=== PATIENT | female | born 1980 | race Caucasian/White ===

== ENCOUNTER → 2020-02-23 16:00 | Outpatient (BNVA) | payer OTHER, SELFPAY | PROVIDERS: Family Provider Nurse Practitioner; Visit Provider Nurse Practitioner | DX: Z11.3 Encounter for screening for infections with a predominantly sexual mode of transmission (principal); Z12.4 Encounter for screening for malignant neoplasm of cervix; R50.9 Fever, unspecified; Z11.59 Encounter for screening for other viral diseases | CPT/HCPCS: 87491; 87591; 87635; 87661; 88175 ==

== ENCOUNTER → 2020-06-11 14:50 | Outpatient (BNVA) | payer MEDICAID, SELFPAY | PROVIDERS: Family Provider Nurse Practitioner; Visit Provider Nurse Practitioner | DX: L98.9 Disorder of the skin and subcutaneous tissue, unspecified (principal) | CPT/HCPCS: 88305 ==

== ENCOUNTER → 2020-09-29 11:55 | Outpatient (BNVA) | payer BC, MEDICAID, SELFPAY | PROVIDERS: Family Provider Nurse Practitioner; PCP Obstetrics & Gynecology; Visit Provider Obstetrics & Gynecology | DX: N89.8 Other specified noninflammatory disorders of vagina (principal); B37.3 Candidiasis of vulva and vagina | CPT/HCPCS: 87070; 87106; 87205; 87210 ==

== ENCOUNTER → 2020-10-08 13:00 | Outpatient (BNVA) | payer BC, MEDICAID, SELFPAY | PROVIDERS: Family Provider Nurse Practitioner; PCP Obstetrics & Gynecology; Visit Provider Obstetrics & Gynecology | DX: R10.2 Pelvic and perineal pain (principal) | CPT/HCPCS: 76830 ==

== ENCOUNTER → 2020-11-29 16:56 | Outpatient (BNVA) | payer BC, MEDICAID, SELFPAY | PROVIDERS: Family Provider Nurse Practitioner; PCP Nurse Practitioner; Visit Provider Nurse Practitioner | DX: R53.83 Other fatigue (principal); E55.9 Vitamin D deficiency, unspecified | CPT/HCPCS: 80053; 82306; 82607; 84443; 85025 ==

== ENCOUNTER → 2021-03-29 15:54 | Outpatient (BNVA) | payer BC, MEDICAID, SELFPAY | PROVIDERS: Family Provider Nurse Practitioner; PCP Nurse Practitioner; Visit Provider Nurse Practitioner | DX: E55.9 Vitamin D deficiency, unspecified (principal) | CPT/HCPCS: 82306 ==

== ENCOUNTER → 2021-08-30 16:09 | Outpatient (BNVA) | payer BC, MEDICAID, SELFPAY | PROVIDERS: Family Provider Nurse Practitioner; PCP Nurse Practitioner; Visit Provider Nurse Practitioner Family | DX: R50.9 Fever, unspecified (principal) | CPT/HCPCS: 87635 ==

== ENCOUNTER 2021-10-04 13:41 | Emergency (ER) | payer BC, MEDICAID, SELFPAY ==
[2021-10-04 13:52] VITALS: BP 113/76; PULSE 90; RESP 18; TEMP 36.8; O2SAT 98; BMI 23.8
[2021-10-04 14:01] VITALS: BP 113/76; PULSE 90; RESP 16; O2SAT 98
--- NOTE | 2021-10-04 14:01 | XRR_ITS ---
PROCEDURE INFORMATION: Exam: XR Left Knee Exam date and time: 10/04/2021 2:01 PM Age: 41 years old Clinical indication: Fall with blunt left knee trauma. Hit knee on ground. TECHNIQUE: Imaging protocol: XR Left knee. Views: 3 views. COMPARISON: No relevant prior studies available. FINDINGS: Bones/joints: No significant knee joint effusion. No fracture, dislocation or subluxation. No suspicious bone lesion. No significant degenerative changes. Soft tissues: The extensor mechanism is overall intact. No significant soft tissue swelling is appreciated. XR/XR knee LT 3V* [id number] IMPRESSION: No acute fracture is identified.
--- NOTE | 2021-10-04 14:03 | W.ED.EXTPRO ---
HPI - Extremity Problem General: Chief complaint: Extremity Problem,Nontraumatic Stated complaint: L Knee injury Time Seen by Provider: 10/04/21 13:46 History of Present Illness: Patient is a 41-year-old female comes to the ED with left knee injury. Patient says injury occurred just prior to arrival. She was climbing over a baby gate and tripped and fell forward hitting her left knee onto floor. She rates her pain a 6 out of 10. Associated symptoms: Deny chest pain, fever(s) or rash Review of Systems Const: Denies: fever(s), chills or fatigue Eyes: Denies: change in vision or eye discomfort ENMT: Denies: throat pain, odynophagia, nasal discharge or nasal congestion Card: Denies: chest pain, palpitations, edema, swelling of feet/ankles, dyspnea on exertion or orthopnea Resp: Denies: dyspnea, productive cough or non-productive cough GI: Denies: abdominal pain, nausea, vomiting, diarrhea, constipation or hematochezia : Denies: flank pain, dysuria or hematuria Musc: Reports: extremity pain (left knee pain); Denies: neck pain, back pain or extremity swelling Skin/Breast: Denies: rash or new lesions Neuro: Denies: headache(s), numbness in extremities or weakness in extremities PFSH ED PFSH: Medical History Fibromyalgia muscle pain History of menorrhagia Treated by endometrial ablation in 06/2019 Medical marijuana use Surgical History History of bilateral tubal ligation (~2005) History of lumpectomy (~2007) Status post endometrial ablation (07/15/19) NovaSure endometrial ablation. Diagnosis: Menorrhagia, Dysmenorrhea, Endometrial polyp. Performed by Dr. Alfonso Peace at [facility] and [place], [place]. Family History Unknown Hypertension family members in general Stroke family members in general Diabetes family members in general Mother Thyroid disease Social History Smoking and tobacco status: current every day smoker cigarettes [ Other cigarette details: quit in 2014 then started back in ] Second hand smoke exposure: No Smoking risk assessment/counseling performed?: Yes Alcohol intake: current Alcohol intake frequency: few times a month Desire information about alcohol rehabilitation?: No Counseling given: No Desire information about substance/drug rehabilitation?: No Counseling given: No Adopted: No Caregiver/support person: No Lives independently: Yes Marital status: service: No Current gender identity: Female Female Reproductive History: Date of last menstrual period: 07/15/19 Physical Exam Const: COMMON NORMALS: no acute distress, patient oriented x3, healthy appearing and alert GENERAL APPEARANCE: cooperative and comfortable HENMT: COMMON NORMALS: normocephalic HEAD & SCALP: normocephalic MOUTH: Normal oral and palatal mucosa present THROAT: posterior oropharynx normal and uvula midline Neck/C-Spine: COMMON NORMALS: supple GENERAL: Yes normal visual inspection Resp: COMMON NORMALS: normal respiratory effort, No retractions, No use of accessory muscles and clear to auscultation bilaterally AUSCULTATION: clear to auscultation bilaterally Cardio: COMMON NORMALS: regular rate, regular rhythm, S1 normal heart sound present, S2 normal heart sound present, No gallops present (Cardio), No clicks present (Cardio), No murmurs present (Cardio) and Peripheral pulses 2+ throughout RATE: regular rate RHYTHM: regular rhythm HEART SOUNDS: S1 normal heart sound present and S2 normal heart sound present PERIPHERAL PULSES: Peripheral pulses 2+ throughout GI: COMMON NORMALS: Normal to inspection, nondistended, normoactive bowel sounds present, Soft to palpation, non-tender and no masses PALPATION: Yes Soft to palpation : COMMON NORMALS: Yes no CVA tenderness BLADDER/KIDNEY EXAM: Yes no CVA tenderness Back/Pelvis: COMMON NORMALS: no CVA tenderness Extremity: COMMON NORMALS: normal to inspection, full ROM and no pedal edema Neuro: COMMON NORMALS: patient oriented x3 and moves all extremities SENSORIUM/ORIENTATION: Yes alert Skin: GENERAL SKIN EXAM: dry skin Course Vital Signs: Vital signs: Vital Signs Temperature 98.2 F 10/04/21 13:52 Pulse Rate 90 10/04/21 14:01 Respiratory Rate 16 10/04/21 14:01 Blood Pressure 113/76 10/04/21 14:01 Pulse Oximetry 98 10/04/21 14:01 MDM - Extremity (Nontraumatic) Medical Decision Making Patient is a 41-year-old female comes to the ED with left knee pain. Patient says she tripped over a baby gate and left knee fell and hit the ground. Denies any other injury. Vital stable. Exam is benign. X-ray of left knee shows no acute fractures or findings. Patient diagnosed with left knee contusion and discharged home with crutches. Follow-up with PCP in 7 to 10 days reevaluation. Return ED precautions given. Patient understood and agree with plan. Lab Data Radiology Impressions Knee X-Ray 10/04/21 14:01 IMPRESSION: No acute fracture is identified. Discharge Plan Discharge Patient Disposition: Home Clinical Impression: Contusion of knee, left Qualifiers: Encounter type: initial encounter Qualified Code(s): S80.02XA - Contusion of left knee, initial encounter Condition: Stable Prescriptions: No Action azithromycin [Zithromax Z-Zeus] 250 mg tablet See Rx Instructions PO .COMPLEX Qty: 6 0RF Rx Instructions: take 500 mg today (day 1), then 250 mg for 4 days (days 2-5) PO mecobalamin (vitamin B12) 5,000 mcg tablet,disintegrating 5,000 mcg PO DAILY Qty: 30 2RF ergocalciferol (vitamin D2) 1,250 mcg (50,000 unit) capsule 1,250 mcg PO .weekly Qty: 4 2RF Discharge Orders: Discharge ED (Routine); Ordered 10/04/21 Ordered By: Vinny Borges Referrals: Lauren Cee, [employer] NETWORK ENGINEER-C [Primary Care Provider] - Discharge Diet: Regular Discharge Activity: Limit activity as instructed and Use walker/crutches as instructed Patient Instructions: Knee Pain (ED) Activity Restrictions/Additional Instructions: Follow-up with medical provider as directed in 7 to 10 days for reevaluation. Take [id number] Tylenol or Motrin for pain. Rest, ice and elevate left knee to help with symptoms. Use crutches for the next 2 to 3 days and limit weightbearing to allow for healing. After 2 to 3 days advance weightbearing as tolerated. Return to the ER or your medical provider if condition worsens. Please read and understand discharge instructions. Thank you for choosing [facility] for your healthcare needs today. Please realize this is an emergency room and that we are providing you with a medical screening exam and this may not be complete and all inclusive of all the testing and or work up that you may need to determine your ailment or severity of your illness. It is very important that you follow up as instructed or that you return to the Emergency Department should you have concerns or if your condition changes or worsens in any way. Coding Level of Care Code ED Cookie Mixer Helper for Wade Chu
[2021-10-04] MEDS: HYDROcodone-acetaminophen 5-325 mg Tablet 1 TAB PO (14:42)
== END 2021-10-04 14:55 | disposition home or self-care (01) ==
PROVIDERS: Emergency Provider Physician Assistant; PCP Nurse Practitioner
DX: S80.02XA Contusion of left knee, initial encounter (principal); F17.210 Nicotine dependence, cigarettes, uncomplicated; W01.0XXA Fall on same level from slipping, tripping and stumbling without subsequent striking against object, initial encounter
CPT/HCPCS: 73562; 99283; E0114

== ENCOUNTER → 2023-02-06 17:19 | Outpatient (BNVA) | payer BC, MEDICAID, SELFPAY | PROVIDERS: PCP Nurse Practitioner; Visit Provider Nurse Practitioner | DX: E55.9 Vitamin D deficiency, unspecified (principal); M79.7 Fibromyalgia; Z13.6 Encounter for screening for cardiovascular disorders | CPT/HCPCS: 80053; 80061; 82306; 82607; 84443; 85025; 88175 ==

== ENCOUNTER 2023-02-23 12:40 | Outpatient (CLI) | payer BC, MEDICAID, SELFPAY ==
--- NOTE | 2023-02-23 13:23 | MM_ITS ---
WS: [id number] BILATERAL 3D TOMOSYNTHESIS DIGITAL SCREENING MAMMOGRAPHY WITH CAD CLINICAL INFORMATION: SCREENING HISTORY: Screening mammogram. History of LEFT lumpectomy COMPARISON: None. TECHNIQUE: Bilateral CC and MLO views. FINDINGS: The breasts are composed of heterogeneous fibroglandular density tissue, which can limit the detectio n of small underlying mass lesions. No suspicious mass, asymmetry, calcifications, or architectural d istortion. No evidence of malignancy. A few incidental punctate calcifications. Bilateral clustered c alcifications MM/[id number] IMPRESSION: BI-RADS: 2-Benign FOLLOW UP: 1 Year Follow-up Recommend return to annual screening mammography.
== END 2023-02-23 12:41 | disposition home or self-care (01) ==
LOC: RAD 13:47
PROVIDERS: PCP Nurse Practitioner; Visit Provider Nurse Practitioner
DX: Z12.31 Encounter for screening mammogram for malignant neoplasm of breast (principal)
CPT/HCPCS: 77063; 77067

== ENCOUNTER → 2023-04-16 10:45 | Outpatient (BNVA) | payer BC, MEDICAID, SELFPAY | PROVIDERS: PCP Nurse Practitioner; Visit Provider Nurse Practitioner Family | DX: R05.9 Cough, unspecified (principal); Z20.822 Contact with and (suspected) exposure to COVID-19 | CPT/HCPCS: 87426 ==

== ENCOUNTER 2023-07-18 12:30 | Emergency (ER) | payer BC, MEDICAID, SELFPAY ==
[2023-07-18 12:35] VITALS: BP 117/84; PULSE 86; RESP 18; TEMP 36.5; O2SAT 100; BMI 20.5
--- NOTE | 2023-07-18 12:51 | XRR_ITS ---
PROCEDURE INFORMATION: Exam: XR Chest Exam date and time: 07/18/2023 12:55 PM Age: 42 years old Clinical indication: Pain; Angina pectoris; Additional info: Cp TECHNIQUE: Imaging protocol: Radiologic exam of the chest. Views: 1 view. COMPARISON: CT kidney stone [id number] 06/16/2018 6:59 PM FINDINGS: Lungs: Unremarkable. No consolidation. Pleural spaces: Unremarkable. No pleural effusion. No pneumothorax. Heart/Mediastinum: Unremarkable. No cardiomegaly. Bones/joints: Unremarkable. XR/XR chest 1V portable [id number] IMPRESSION: No acute findings.
[2023-07-18 13:18] LABS: Basophils # 0.1 10^3/uL (0.0-0.1); Basophils % 1.2 %; Eosinophils % 0.5 %; Lymphocytes # 2.7 10^3/uL (0.8-4.8); Lymphocytes % 36.3 %; Mean Corpuscular HGB Conc 32.8 g/dL (30-55); Mean Corpuscular Hemoglobin 31.2 pg (27-33); Mean Corpuscular Volume 95.1 fl (85-98); Mean Platelet Volume 10.8 fL (7.4-10.4); Monocytes # 0.4 10^3/uL (0.2-0.9); Monocytes % 5.7 %; Neutrophils % 56.2 %; Nucleated Red Blood Cells % 0 %; Platelet Count 288 10^3/cmm (157-399); Red Blood Count 4.52 10^6/uL (3.85-5.65); Red Cell Distribution Width 11.6 % (12.1-15.1); White Blood Count 7.49 10^3/uL (3.29-11.43)
[2023-07-18 13:35] LABS: Alanine Aminotransferase 9 U/L (0-33); Albumin Level 4.7 g/dL (3.5-5.2); Alkaline Phosphatase 73 U/L (35-105); Anion Gap 12.7 (5-19); Aspartate Amino Transferase 10 U/L (0-32); Blood Urea Nitrogen 7 mg/dL (6-20); Calcium 9.8 mg/dL (8.5-10.5); Carbon Dioxide 28 mmol/L (22-29); Chloride 101 mmol/L (98-107); Globulin 2.5 g/dL (1.3-4.6); Glomerular Filtration Rate 110.2 mL/min (90-130); Glucose 114 mg/dL (65-115); Osmolality Calculated 285 mOsm/kg (285-295); Potassium 3.7 mmol/L (3.5-5.1); Sodium 138 mmol/L (136-145); Total Bilirubin 0.5 mg/dL (0.15-1.2); Total Protein 7.2 g/dL (6.6-8.7)
--- NOTE | 2023-07-18 17:49 | ED_ITS ---
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 Patient reports since then she has had upper back pain with numbness and tingling running down her arms and shaking of her arms. Patient moves neck without difficulty. Patient appears nontoxic. Patient does have a history of fibromyalgia. Review of Systems 2 General: Reports: 10 or more systems reviewed and unremarkable except in HPI and below Musc: Reports: back pain PFSH ED 2 PFSH: Medical History Fibromyalgia muscle pain History of menorrhagia Treated by endometrial ablation in 06/2019 Medical marijuana use Surgical History History of bilateral tubal ligation (~2005) History of lumpectomy (~2007) Status post endometrial ablation (07/15/19) NovaSure endometrial ablation. Diagnosis: Menorrhagia, Dysmenorrhea, Endometrial polyp. Performed by Dr. Alfonso Peace at [facility] and [place], [place]. Family History Unknown Hypertension family members in general Stroke family members in general Diabetes family members in general Mother Thyroid disease Social History Smoking and tobacco/nicotine status: current every day tobacco/nicotine user cigarettes [ Other cigarette details: quit in 2014 then started back in [facility]] Second hand smoke exposure: No Alcohol intake: current Alcohol intake frequency: few times a month Substance/Drug Use: unknown Adopted: No Caregiver/support person: No Lives independently: Yes Marital status: service: No Do you think of yourself as: Straight/Heterosexual Current gender identity: Female Physical Exam 2 Const: COMMON NORMALS: alert HENMT: COMMON NORMALS: normocephalic HEAD & SCALP: normocephalic Neck/C-Spine: COMMON NORMALS: full ROM Resp: COMMON NORMALS: normal respiratory effort Cardio: COMMON NORMALS: regular rate RATE: regular rate GI: COMMON NORMALS: non-tender Back/Pelvis: THORACIC SPINE/UPPER BACK: Yes paraspinal muscle tenderness Neuro: SENSORIUM/ORIENTATION: Yes alert Skin: COMMON NORMALS: turgor normal GENERAL SKIN EXAM: turgor normal Course 2 Vital Signs: Vital signs: Vital Signs Temperature 97.7 F 07/18/23 12:35 Pulse Rate 86 07/18/23 12:35 Respiratory Rate 18 07/18/23 12:35 Blood Pressure 117/84 07/18/23 12:35 Pulse Oximetry 100 07/18/23 12:35 Oxygen Delivery Me thod Room Air 07/18/23 12:35 MDM - Extremity (Nontraumatic) Medical Decision Making Patient comes in today for 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 On exam patient has muscle tenderness of the upper back. Palpable spinal tenderness is noted. Patient appears nontoxic. Patient appears in moderate pain. Differential diagnosis includes thoracic muscle strain, intervertebral disc disease, facet arthropathy. Laboratory values were unremarkable. Patient be treated for musculoskeletal pain. Patient was recommended to follow-up with primary care for further instructions. Return to ED for new concerns. Patient reported understanding agreed to plan. Lab Data 07/18/23 13:12 07/18/23 13:12 Radiology Impressions Chest X-Ray 07/18/23 12:51 IMPRESSION: No acute findings. Laboratory Results WBC 7.49 10^3/uL (3.29-11.43) 07/18/23 13:12 RBC 4.52 10^6/uL (3.85-5.65) 07/18/23 13:12 Hgb 14.10 g/dL (11.27-16.99) 07/18/23 13:12 Hct 43.0 % (36-47) 07/18/23 13:12 MCV 95.1 fl (85-98) 07/18/23 13:12 MCH 31.2 pg (27-33) 07/18/23 13:12 MCHC 32.8 g/dL (30-55) 07/18/23 13:12 RDW 11.6 % (12.1-15.1) L 07/18/23 13:12 Plt Count 288 10^3/cmm (157-399) 07/18/23 13:12 MPV 10.8 fL (7.4-10.4) H 07/18/23 13:12 Neut % (Auto) 56.2 % 07/18/23 13:12 Lymph % (Auto) 36.3 % 07/18/23 13:12 [place] % (Auto) 5.7 % 07/18/23 13:12 Eos % (Auto) 0.5 % 07/18/23 13:12 Baso % (Auto) 1.2 % 07/18/23 13:12 Neut # (Auto) 4.20 10^3/uL (1.8-7.7) 07/18/23 13:12 Lymph # (Auto) 2.7 10^3/uL (0.8-4.8) 07/18/23 13:12 Radford # (Auto) 0.4 10^3/uL (0.2-0.9) 07/18/23 13:12 Eos # (Auto) 0.0 10^3/uL (0.0-0.8) 07/18/23 13:12 Baso # (Auto) 0.1 10^3/uL (0.0-0.1) 07/18/23 13:12 Nucleated RBC % (auto) 0 % 07/18/23 13:12 Nucleated RBCs # 0.0 /100WBC 07/18/23 13:12 Sodium 138 mmol/L (136-145) 07/18/23 13:12 Potassium 3.7 mmol/L (3.5-5.1) 07/18/23 13:12 Chloride 101 mmol/L (98-107) 07/18/23 13:12 Carbon Dioxide 28 mmol/L (22-29) 07/18/23 13:12 Anion Gap 12.7 (5-19) 07/18/23 13:12 BUN 7 mg/dL (6-20) 07/18/23 13:12 Creatinine 0.6 mg/dL (0.5-0.9) 07/18/23 13:12 GFR Calculation 110.2 mL/min (90-130) 07/18/23 13:12 Glucose 114 mg/dL (65-115) 07/18/23 13:12 Calculated Osmolality 285 mOsm/kg (285-295) 07/18/23 13:12 Calcium 9.8 mg/dL (8.5-10.5) 07/18/23 13:12 Total Bilirubin 0.5 mg/dL (0.15-1.2) 07/18/23 13:12 AST 10 U/L (0-32) 07/18/23 13:12 ALT 9 U/L (0-33) 07/18/23 13:12 Alkaline Phosphatase 73 U/L (35-105) 07/18/23 13:12 Total Protein 7.2 g/dL (6.6-8.7) 07/18/23 13:12 Albumin 4.7 g/dL (3.5-5.2) 07/18/23 13:12 Globulin 2.5 g/dL (1.3-4.6) 07/18/23 13:12 All radiology interpretation(s) finalized by discharge Discharge Plan Discharge Patient Disposition: Home Clinical Impression: Acute thoracic myofascial strain Qualifiers: Encounter type: initial encounter Qualified Code(s): S29.019A - Strain of muscle and tendon of unspecified wall of thorax, initial encounter Condition: Stable Prescriptions: New diclofenac sodium 75 mg tablet,delayed release (DR/EC) 75 mg PO BID Qty: 20 0RF hydrocodone-acetaminophen 5-325 mg tablet 1 tab PO Q8H PRN (Reason: pain (scale score 7-10)) Qty: 10 0RF No Action amoxicillin-pot clavulanate 875-125 mg tablet 1 tab PO Q12H Qty: 20 0RF prednisone 20 mg tablet 20 mg PO BID Qty: 3 0RF Discharge Orders: Discharge ED (Routine); Ordered 07/18/23 Ordered By: Axel Erazo Referrals: Lauren Cee, [employer] PL[employer] MACHINE OPERATOR-C [Primary Care Provider] - Discharge Diet: Usual diet Discharge Activity: Increase activity as tolerated Patient Instructions: Thoracic Back Strain (ED), Opioid Safety Activity Restrictions/Additional Instructions: Activity as tolerated. Gentle stretching and range of motion exercises. Use ice or heat for further pain relief. Use acetaminophen as needed for control of pain. Take diclofenac 75 mg 1 tablet twice a day for pain and inflammation. Use hydrocodone for severe pain. Do not use diclofenac while taking ibuprofen at the same time. Return to ER as needed. Follow-up with primary care for persistent or worsening symptoms. Stand Alone Forms: Work/School Release Coding Level of Care Code ED General Farmworker for Wade Chu
[2023-07-18] MEDS: ketorolac 30 mg/mL INJ IM (18:00)
[2023-07-18] MEDS: HYDROcodone-acetaminophen 7.5-325 mg Tablet 1 TAB PO (18:00)
== END 2023-07-18 18:01 | disposition home or self-care (01) ==
PROVIDERS: Emergency Medicine; Emergency Provider Nurse Practitioner Family; PCP Nurse Practitioner
DX: S29.019A Strain of muscle and tendon of unspecified wall of thorax, initial encounter (principal); F17.210 Nicotine dependence, cigarettes, uncomplicated; X50.0XXA Overexertion from strenuous movement or load, initial encounter; Y93.F2 Activity, caregiving, lifting; Y99.0 Civilian activity done for income or pay
CPT/HCPCS: 36415; 71045; 80053; 85025; 96372; 99284; J1885

== ENCOUNTER → 2023-07-25 09:08 | Outpatient (BNVA) | payer BC, MEDICAID, SELFPAY | PROVIDERS: PCP Nurse Practitioner; Visit Provider Nurse Practitioner Family | DX: G89.29 Other chronic pain (principal); M79.7 Fibromyalgia; M25.50 Pain in unspecified joint | CPT/HCPCS: 84443; 85025; 85651; 86140; 86160; 86162; 86235; 86255; 86376; 86431 ==

== ENCOUNTER → 2023-11-14 13:01 | Outpatient (BNVA) | payer BC, MEDICAID, SELFPAY | PROVIDERS: PCP Nurse Practitioner; Visit Provider Nurse Practitioner | DX: M79.7 Fibromyalgia (principal); M54.50 Low back pain, unspecified; M79.672 Pain in left foot; M54.2 Cervicalgia; M50.30 Other cervical disc degeneration, unspecified cervical region | CPT/HCPCS: 72040; 72100; 73630 ==

== ENCOUNTER → 2024-01-16 15:34 | Outpatient (BNVA) | payer BC, MEDICAID, SELFPAY | PROVIDERS: PCP Nurse Practitioner; Visit Provider Nurse Practitioner | DX: E55.9 Vitamin D deficiency, unspecified (principal) | CPT/HCPCS: 82306; 82607 ==

== ENCOUNTER → 2024-01-30 10:01 | Outpatient (BNVA) | payer BC, MEDICAID, SELFPAY | PROVIDERS: PCP Nurse Practitioner; Visit Provider Internal Medicine Rheumatology | DX: Z11.1 Encounter for screening for respiratory tuberculosis (principal); Z79.899 Other long term (current) drug therapy; M19.90 Unspecified osteoarthritis, unspecified site; Z11.59 Encounter for screening for other viral diseases; M45.6 Ankylosing spondylitis lumbar region | CPT/HCPCS: 36415; 72100; 72202; 73130; 73630; 80076; 82306; 82565; 83520; 85025; 85651; 86140; 86200; 86480; 86704; 86803; 86812; 87340 ==

== ENCOUNTER 2024-03-05 13:35 | Outpatient (CLI) | payer BC, MEDICAID, SELFPAY ==
--- NOTE | 2024-03-05 13:39 | MM_ITS ---
WS: [id number] BILATERAL 3D TOMOSYNTHESIS DIGITAL SCREENING MAMMOGRAM WITH CAD CLINICAL INFORMATION: SCREENING HISTORY: Screening mammogram. History of LEFT lumpectomy benign COMPARISON: 2022 TECHNIQUE: Bilateral CC and MLO. FINDINGS: The breast are composed of extremely dense tissue, which can limit the detection of small underlying mass lesions. No suspicious focal mass, asymmetry, calcifications, or architectural distortion. No ev idence of malignancy. Incidental benign calcifications. Stable cluster calcifications RIGHT breast. MM/[id number] IMPRESSION: BI-RADS: 2-Benign FOLLOW UP: 1 Year Follow-up Recommend return to annual screening mammography.
[2024-03-05 14:14] LABS: Basophils # 0.1 10^3/uL (0.0-0.1); Basophils % 0.6 %; Hematocrit 43.1 % (36-47); Lymphocytes # 0.6 10^3/uL (0.8-4.8); Lymphocytes % 6.8 %; Mean Corpuscular HGB Conc 32.3 g/dL (30-55); Mean Corpuscular Hemoglobin 31.6 pg (27-33); Mean Platelet Volume 10.7 fL (7.4-10.4); Monocytes # 0.1 10^3/uL (0.2-0.9); Monocytes % 1.4 %; Neutrophils # 8.53 10^3/uL (1.8-7.7); Neutrophils % 90.9 %; Nucleated Red Blood Cells % 0 %; Platelet Count 324 10^3/cmm (157-399); Red Cell Distribution Width 12.5 % (12.1-15.1); White Blood Count 9.39 10^3/uL (3.29-11.43)
[2024-03-05 14:26] LABS: Erythrocyte Sedimentation Rate 11 mm/hr (0-15)
[2024-03-05 14:30] LABS: Alanine Aminotransferase 13 U/L (0-33); Albumin Level 4.5 g/dL (3.5-5.2); Alkaline Phosphatase 76 U/L (35-105); Aspartate Amino Transferase 10 U/L (0-32); Globulin 2.9 g/dL (1.3-4.6); Glomerular Filtration Rate 91.8 mL/min (90-130); Total Bilirubin 0.3 mg/dL (0.15-1.2); Total Protein 7.4 g/dL (6.6-8.7)
== END 2024-03-05 13:36 | disposition home or self-care (01) ==
LOC: RAD 13:36
PROVIDERS: Internal Medicine Rheumatology; PCP Nurse Practitioner; Visit Provider Nurse Practitioner
DX: Z12.31 Encounter for screening mammogram for malignant neoplasm of breast (principal); Z79.899 Other long term (current) drug therapy; M19.90 Unspecified osteoarthritis, unspecified site; Z98.890 Other specified postprocedural states; R92.1 Mammographic calcification found on diagnostic imaging of breast
CPT/HCPCS: 36415; 77063; 77067; 80076; 82565; 85025; 85651; 86140

== ENCOUNTER 2024-05-19 11:15 | Emergency (ER) | payer BC, MEDICAID, SELFPAY ==
[2024-05-19 11:54] VITALS: BP 107/70; PULSE 90; RESP 16; TEMP 36.8; O2SAT 97
[2024-05-19 12:23] LABS: HCG, Serum Qual Negative (Negative)
[2024-05-19 12:36] LABS: Albumin Level 4.1 g/dL (3.5-5.2); Alkaline Phosphatase 118 U/L (35-105); Chloride 101 mmol/L (98-107); Potassium 3.8 mmol/L (3.5-5.1); Sodium 135 mmol/L (136-145)
--- NOTE | 2024-05-19 12:37 | ED_ITS ---
HPI - Nausea/Vomiting/Diarrhea 2 General: Chief complaint: Nausea/Vomiting/Diarrhea Stated complaint: n,v,d x 4 days Time Seen by Provider: 05/19/24 11:35 Source: patient Mode of arrival: ambulatory Limitations: no limitations History of Present Illness: 43-year-old female who states that last 4 days she been having nausea vomiting diarrhea states she is unable to tolerate any p.o. states been having some low back pain she states she feels like she has pulled a muscle from vomiting. She denies any fevers she has had a mild headache as well. Denies any chest pain Associated nausea: Yes Associated symtoms: Reports headache(s) and nausea; Denies chest pain or dysuria Related Data Home Medications Medication Instructions Recorded Confirmed prednisone 5 mg tablet 2 mg PO DAILY 05/19/24 05/19/24 sulfasalazine 500 mg tablet 2 g PO BID RA 05/19/24 05/19/24 Previous Rx's Medication Instructions Recorded aripiprazole 2 mg tablet (Abilify) 2 mg PO DAILY #30 tabs 02/28/24 celecoxib 100 mg capsule (Celebrex) 100 mg PO BID #60 caps 02/28/24 ergocalciferol (vitamin D2) 1,250 1,250 mcg PO .every 12 weeks #1 cap 02/28/24 mcg (50,000 unit) capsule fluoxetine 10 mg capsule 10 mg PO DAILY #30 caps 02/28/24 prednisone 20 mg tablet See Rx Instructions PO .COMPLEX 04/28/24 PRN joint pain flare #30 tabs leflunomide 20 mg tablet 20 mg PO DAILY RA #90 tabs 04/30/24 omeprazole 20 mg capsule,delayed 20 mg PO DAILY 30 days #30 caps 04/30/24 release ondansetron 4 mg disintegrating 4 mg PO Q6H PRN nausea and 05/19/24 tablet vomiting #14 tabs Allergies Allergy/AdvReac Type Severity Reaction Status Date / Time mushrooms Allergy anaphylaxis Uncoded 05/19/24 12:01 Review of Systems 2 Const: Denies: fever(s), chills, body aches or change in appetite ENMT: Denies: throat pain or dental pain Card: Denies: chest pain Resp: Denies: dyspnea GI: Reports: nausea, vomiting and diarrhea; Denies: abdominal pain : Denies: dysuria Musc: Reports: back pain; Denies: neck pain Skin/Breast: Denies: rash Neuro: Reports: headache(s) PFSH ED 2 PFSH: Medical History Seronegative rheumatoid arthritis of both hands Fibromyalgia Immunization counseling High risk medication use Inflammatory back pain Inflammatory arthritis Medical marijuana use Fibromyalgia muscle pain History of menorrhagia Treated by endometrial ablation in 06/2019 Surgical History Status post endometrial ablation (07/15/19) NovaSure endometrial ablation. Diagnosis: Menorrhagia, Dysmenorrhea, Endometrial polyp. Performed by Dr. Alfonso Peace at [facility] and [place], [place]. History of lumpectomy (~2007) History of bilateral tubal ligation (~2005) Family History Unknown Hypertension family members in general Stroke family members in general Diabetes family members in general Mother Thyroid disease Other Cancer Lupus (systemic lupus erythematosus) Osteoporosis Rheumatoid arthritis Denies family history of CAD (coronary artery disease) Heart disease Migraines Hyperlipidemia Chronic kidney disease (CKD) Social History Smoking and tobacco/nicotine status: current every day tobacco/nicotine user cigarettes [ Other cigarette details: quit in 2014 then started back in [facility]] Second hand smoke exposure: No Alcohol intake: current Alcohol intake frequency: few times a month Substance/Drug Use: unknown Adopted: No Caregiver/support person: No Lives independently: Yes Household members: spouse Marital status: Highest education level completed: Don't Know service: No Do you think of yourself as: Straight/Heterosexual Current gender identity: Female Physical Exam 2 Const: COMMON NORMALS: no acute distress, patient oriented x3 and healthy appearing HENMT: COMMON NORMALS: normocephalic and atraumatic HEAD & SCALP: n ormocephalic and atraumatic Eye: COMMON NORMALS: conjunctivae normal CONJUNCTIVA: Yes conjunctivae normal Neck/C-Spine: COMMON NORMALS: full ROM and supple Chest: COMMONS NORMALS: normal inspection of the chest Resp: COMMON NORMALS: normal respiratory effort Cardio: COMMON NORMALS: regular rate, regular rhythm and No murmurs present (Cardio) RATE: regular rate RHYTHM: regular rhythm GI: COMMON NORMALS: Normal to inspection, nondistended, normoactive bowel sounds present, Soft to palpation, non-tender and no masses PALPATION: Yes Soft to palpation Extremity: COMMON NORMALS: normal to inspection and full ROM Neuro: COMMON NORMALS: patient oriented x3, moves all extremities and no focal motor deficits Psych: COMMON NORMALS: mental status grossly normal, Normal thought process present and cooperative THOUGHT PROCESS: Normal thought process present Skin: COMMON NORMALS: no rashes or lesions noted and no wounds GENERAL SKIN EXAM: no rashes or lesions noted Course 2 Vital Signs: Vital signs: Vital Signs Temperature 98.3 F 05/19/24 11:54 Pulse Rate 90 05/19/24 11:54 Respiratory Rate 16 05/19/24 11:54 Blood Pressure 107/70 05/19/24 11:54 Pulse Oximetry 97 05/19/24 11:54 Oxygen Delivery Me thod Room Air 05/19/24 11:54 MDM - Nausea/Vomiting/Diarrhea Medical Decision Making Patient presents here with vomiting with diarrhea likely viral in origin she has no right upper quadrant pain her exam here is benign she feels much improved after fluids and nausea medicine we will prescribe her Zofran she is to follow- up with PCP and return if worsening she understands agrees to plan Medical Records I reviewed the patient's medical records. Lab Data I reviewed the patient's lab results. 05/19/24 13:18 05/19/24 11:53 Laboratory Results WBC 8.53 10^3/uL (3.29-11.43) 05/19/24 13:18 Corrected WBC Cancelled 05/19/24 11:53 RBC 4.63 10^6/uL (3.85-5.65) 05/19/24 13:18 Hgb 14.00 g/dL (11.27-16.99) 05/19/24 13:18 Hct 44.7 % (36-47) 05/19/24 13:18 MCV 96.5 fl (85-98) 05/19/24 13:18 MCH 30.2 pg (27-33) 05/19/24 13:18 MCHC 31.3 g/dL (30-55) 05/19/24 13:18 RDW 12.6 % (12.1-15.1) 05/19/24 13:18 Plt Count 186 10^3/cmm (157-399) 05/19/24 13:18 MPV 11.3 fL (7.4-10.4) H 05/19/24 13:18 Gran % Cancelled 05/19/24 11:53 Neut % (Auto) 85.3 % 05/19/24 13:18 Lymph % (Auto) 7.0 % 05/19/24 13:18 [place] % (Auto) 5.0 % 05/19/24 13:18 Eos % (Auto) 1.8 % 05/19/24 13:18 Baso % (Auto) 0.5 % 05/19/24 13:18 Neut # (Auto) 7.28 10^3/uL (1.8-7.7) 05/19/24 13:18 Lymph # (Auto) 0.6 10^3/uL (0.8-4.8) L 05/19/24 13:18 [place] # (Auto) 0.4 10^3/uL (0.2-0.9) 05/19/24 13:18 Eos # (Auto) 0.2 10^3/uL (0.0-0.8) 05/19/24 13:18 Baso # (Auto) 0.0 10^3/uL (0.0-0.1) 05/19/24 13:18 Absolute Gran (auto) Cancelled 05/19/24 11:53 Nucleated RBC % (auto) 0 % 05/19/24 13:18 Nucleated RBCs # 0.0 /100WBC 05/19/24 13:18 Sodium 135 mmol/L (136-145) L 05/19/24 11:53 Potassium 3.8 mmol/L (3.5-5.1) 05/19/24 11:53 Chloride 101 mmol/L (98-107) 05/19/24 11:53 Carbon Dioxide 21 mmol/L (22-29) L 05/19/24 11:53 Anion Gap 16.8 (5-19) 05/19/24 11:53 BUN 13 mg/dL (6-20) 05/19/24 11:53 Creatinine 0.6 mg/dL (0.5-0.9) 05/19/24 11:53 GFR Calculation 109.6 mL/min (90-130) 05/19/24 11:53 Glucose 87 mg/dL (65-115) 05/19/24 11:53 Calculated Osmolality 279 mOsm/kg (285-295) L 05/19/24 11:53 Calcium 8.7 mg/dL (8.5-10.5) 05/19/24 11:53 Total Bilirubin 0.9 mg/dL (0.15-1.2) 05/19/24 11:53 AST 110 U/L (0-32) H 05/19/24 11:53 ALT 96 U/L (0-33) H 05/19/24 11:53 Alkaline Phosphatase 118 U/L (35-105) H 05/19/24 11:53 Total Protein 7.0 g/dL (6.6-8.7) 05/19/24 11:53 Albumin 4.1 g/dL (3.5-5.2) 05/19/24 11:53 Globulin 2.9 g/dL (1.3-4.6) 05/19/24 11:53 Lipase 22 U/L (13-60) 05/19/24 11:53 HCG, Qual Negative (Negative) 05/19/24 11:53 Amorphous Sediment Not Reportable 05/19/24 13:06 Coronavirus (PCR) Negative (Negative) 05/19/24 13:06 Influenza A (PCR) Negative (Negative) 05/19/24 13:06 Influenza Type B (PCR) Negative (Negative) 05/19/24 13:06 RSV (PCR) Negative (Negative) 05/19/24 13:06 All radiology interpretation(s) finalized by discharge Discharge Plan Discharge Patient Disposition: Home Clinical Impression: Vomiting Condition: Stable Prescriptions: New ondansetron 4 mg tablet,disintegrating 4 mg PO Q6H PRN (Reason: nausea and vomiting) Qty: 14 0RF No Action leflunomide 20 mg tablet 20 mg PO DAILY Qty: 90 1RF omeprazole 20 mg capsule,delayed release(DR/EC) 20 mg PO DAILY 30 Days Qty: 30 3RF aripiprazole [Abilify] 2 mg tablet 2 mg PO DAILY Qty: 30 2RF fluoxetine 10 mg capsule 10 mg PO DAILY Qty: 30 2RF ergocalciferol (vitamin D2) 1,250 mcg (50,000 unit) capsule 1,250 mcg PO .every 12 weeks Qty: 1 1RF celecoxib [Celebrex] 100 mg capsule 100 mg PO BID Qty: 60 2RF prednisone 20 mg tablet See Rx Instructions PO .COMPLEX PRN (Reason: joint pain flare) Qty: 30 1RF Rx Instructions: take 2 tab daily for 7 days as needed for arthritis flare PO PRN; sulfasalazine 500 mg tablet 2 g PO BID prednisone 5 mg tablet 2 mg PO DAILY Discharge Orders: Discharge ED (Routine); Ordered 05/19/24 Ordered By: Tasia Thomas Referrals: Lauren Cee, DRAWING SUPERVISOR-C [Primary Care Provider] - 4-7 days Discharge Diet: Advance as tolerated Discharge Activity: Resume usual activity Patient Instructions: Acute Nausea and Vomiting (ED) Coding Level of Care Code ED Government Instructor for Wade Chu
[2024-05-19 12:50] LABS: Alanine Aminotransferase 96 U/L (0-33); Anion Gap 16.8 (5-19); Blood Urea Nitrogen 13 mg/dL (6-20); Calcium 8.7 mg/dL (8.5-10.5); Carbon Dioxide 21 mmol/L (22-29); Creatinine Clr Calc Pharmacy 104.2176; Globulin 2.9 g/dL (1.3-4.6); Glomerular Filtration Rate 109.6 mL/min (90-130); Glucose 87 mg/dL (65-115); Lipase 22 U/L (13-60); Osmolality Calculated 279 mOsm/kg (285-295); Total Bilirubin 0.9 mg/dL (0.15-1.2)
[2024-05-19 12:51] LABS: Aspartate Amino Transferase 110 U/L (0-32)
[2024-05-19] MEDS: morphine 4 mg/mL SDV 1 mL IVP (13:03)
[2024-05-19] MEDS: ondansetron 2 mg/ML SDV 2 mL 4 MG IVP (13:03)
[2024-05-19] MEDS: diphenoxylate/atropine Tablet 2 TAB PO (13:03)
[2024-05-19] MEDS: sodium chloride 0.9% 1,000 ML 999 ML IV (13:04)
--- NOTE | 2024-05-19 13:12 | PC.PHAR ---
pt states has taken medications every day but threw them up every day except today. Pts Sulfasalazine 500mg rx written for 1 tablet twice daily for 7 days then increase to 2 tablets daily. Pt is now on 2 tablets twice daily
[2024-05-19 13:59] LABS: Basophils % 0.5 %; Eosinophils # 0.2 10^3/uL (0.0-0.8); Eosinophils % 1.8 %; Hematocrit 44.7 % (36-47); Lymphocytes # 0.6 10^3/uL (0.8-4.8); Mean Corpuscular HGB Conc 31.3 g/dL (30-55); Mean Corpuscular Hemoglobin 30.2 pg (27-33); Mean Corpuscular Volume 96.5 fl (85-98); Mean Platelet Volume 11.3 fL (7.4-10.4); Monocytes # 0.4 10^3/uL (0.2-0.9); Neutrophils # 7.28 10^3/uL (1.8-7.7); Neutrophils % 85.3 %; Nucleated Red Blood Cells % 0 %; Platelet Count 186 10^3/cmm (157-399); Red Blood Count 4.63 10^6/uL (3.85-5.65); Red Cell Distribution Width 12.6 % (12.1-15.1); White Blood Count 8.53 10^3/uL (3.29-11.43)
[2024-05-19 14:07] LABS: Covid PCR NEGATIVE (Negative); Influenza A NEGATIVE (Negative); Influenza B NEGATIVE (Negative); Respiratory Syncytial Virus Ce NEGATIVE (Negative)
[2024-05-19 14:16] LABS: Bilirubin Urine 2+ (Negative); Blood Urine Negative (Negative); Glucose Urine UA Negative (Normal); Ketones Urine 2+ (Negative); Leukocyte Esterase Urine 1+ (Negative); Nitrate Urine Positive (Negative); Protein Urine 1+ (Negative); Urine Appearance Cloudy (CLEAR); Urine Color Dark Yellow (Yellow); pH Urine 5.5 (5-7)
[2024-05-19 14:21] LABS: Add Urine Microscopic? YES; Bacteria Urine 1+ /hpf; Hyaline Casts Urine 0.81 /lpf
[2024-05-19 14:31] VITALS: BP 100/60; PULSE 100; RESP 18; O2SAT 97
[2024-05-19 14:45] LABS: Specific Gravity, Urine 1.037 (1.005-1.030)
[2024-05-19 14:46] LABS: Add Urine Culture? Yes
[2024-05-19 15:15] VITALS: BP 101/67; PULSE 101; O2SAT 97
== END 2024-05-19 15:16 | disposition home or self-care (01) ==
PROVIDERS: Emergency Provider Emergency Medicine; PCP Nurse Practitioner
DX: R11.10 Vomiting, unspecified (principal); Z11.52 Encounter for screening for COVID-19; F17.210 Nicotine dependence, cigarettes, uncomplicated
CPT/HCPCS: 0241U; 36415; 80053; 81001; 83690; 84703; 85025; 87086; 96361; 96374; 96375; 99284; J2270; J2405; J7030

== ENCOUNTER → 2024-05-21 11:10 | Outpatient (BNVA) | payer BC, MEDICAID, SELFPAY | PROVIDERS: PCP Nurse Practitioner; Visit Provider Nurse Practitioner | DX: R74.01 Elevation of levels of liver transaminase levels (principal) | CPT/HCPCS: 80053; 86705; 86706; 86709; 86803; 87340 ==

== ENCOUNTER → 2024-06-18 11:57 | Outpatient (BNVA) | payer BC, MEDICAID, SELFPAY | PROVIDERS: PCP Nurse Practitioner; Visit Provider Nurse Practitioner | DX: R74.01 Elevation of levels of liver transaminase levels (principal) | CPT/HCPCS: 80053; 81000 ==

== ENCOUNTER 2024-07-25 08:50 | Outpatient (CLI) | payer BC, MEDICAID, SELFPAY ==
[2024-07-25 09:29] LABS: Alanine Aminotransferase 11 U/L (0-33); Albumin Level 4.3 g/dL (3.5-5.2); Alkaline Phosphatase 73 U/L (35-105); Anion Gap 14.2 (5-19); Aspartate Amino Transferase 13 U/L (0-32); Blood Urea Nitrogen 13 mg/dL (6-20); Calcium 9.8 mg/dL (8.5-10.5); Carbon Dioxide 25 mmol/L (22-29); Chloride 105 mmol/L (98-107); Globulin 2.8 g/dL (1.3-4.6); Glomerular Filtration Rate 109.6 mL/min (90-130); Glucose 90 mg/dL (65-115); Osmolality Calculated 290 mOsm/kg (285-295); Potassium 4.2 mmol/L (3.5-5.1); Sodium 140 mmol/L (136-145); Total Bilirubin 0.4 mg/dL (0.15-1.2); Total Protein 7.1 g/dL (6.6-8.7)
[2024-07-25 09:33] LABS: Erythrocyte Sedimentation Rate 10 mm/hr (0-15)
[2024-07-25 09:35] LABS: Basophils # 0.1 10^3/uL (0.0-0.1); Basophils % 0.9 %; Eosinophils # 0.1 10^3/uL (0.0-0.8); Eosinophils % 0.9 %; Hematocrit 43.8 % (36-47); Lymphocytes # 2.3 10^3/uL (0.8-4.8); Lymphocytes % 20.2 %; Mean Corpuscular HGB Conc 31.7 g/dL (30-55); Mean Corpuscular Hemoglobin 30.8 pg (27-33); Mean Corpuscular Volume 97.1 fl (85-98); Mean Platelet Volume 10.8 fL (7.4-10.4); Monocytes # 0.8 10^3/uL (0.2-0.9); Monocytes % 6.8 %; Neutrophils # 8.08 10^3/uL (1.8-7.7); Neutrophils % 70.8 %; Nucleated Red Blood Cells % 0 %; Platelet Count 334 10^3/cmm (157-399); Red Blood Count 4.51 10^6/uL (3.85-5.65); Red Cell Distribution Width 12.3 % (12.1-15.1)
== END 2024-07-25 08:51 | disposition home or self-care (01) ==
LOC: LAB 08:50
PROVIDERS: PCP Nurse Practitioner; Visit Provider Internal Medicine Rheumatology
DX: R74.8 Abnormal levels of other serum enzymes (principal); L97.512 Non-pressure chronic ulcer of other part of right foot with fat layer exposed; M54.89 Other dorsalgia; Z79.899 Other long term (current) drug therapy; M79.7 Fibromyalgia; M19.90 Unspecified osteoarthritis, unspecified site
CPT/HCPCS: 36415; 80053; 85025; 85651; 86140

== ENCOUNTER 2024-07-25 09:13 | Emergency (ER) | payer BC, MEDICAID, SELFPAY ==
[2024-07-25 09:21] VITALS: BP 140/93; PULSE 90; RESP 18; TEMP 36.6; O2SAT 96
--- NOTE | 2024-07-25 09:42 | ED_ITS ---
HPI - General Adult General: Chief complaint: General Medical Stated complaint: exreme pain all over Time Seen by Provider: 07/25/24 09:15 Source: patient Mode of arrival: ambulatory Limitations: no limitations History of Present Illness: Patient is a 43-year-old female presents to ED today with what she believes is rheumatoid arthritis flare. She states she is having pain in her neck and back and several joints. Pain seems to be worse with movement. She was having pain in her hands with gripping the steering wheel. Symptoms of a present over the past 2 days. She has had similar symptoms previously with RA flares. She is not running fevers or having any other systemic complaints. She states she was recently removed from her RA medications including leflunomide and sulfasalazine due to elevated liver enzymes. She states she recently had labs completed that were ordered by Dr. Michael, her welding pantograph machine operator. She states she has an upcoming appointment with him in August. She has otherwise been following up with her PCP Lauren Cee. Onset (ago): day(s) Pain Consistency: constant Relieving factors: none Associated symptoms: Deny chest pain, dyspnea, malaise, nausea, rash, palpitations, syncope or vomiting Treatments prior to arrival: none Related Data Home Medications Medication Instructions Recorded Confirmed prednisone 5 mg tablet 2 mg PO DAILY 05/19/24 06/18/24 sulfasalazine 500 mg tablet 2 g PO BID RA 05/19/24 06/18/24 Previous Rx's Medication Instructions Recorded prednisone 20 mg tablet See Rx Instructions PO .COMPLEX 04/28/24 PRN joint pain flare #30 tabs leflunomide 20 mg tablet 20 mg PO DAILY RA #90 tabs 04/30/24 omeprazole 20 mg capsule,delayed 20 mg PO DAILY 30 days #30 caps 04/30/24 release ondansetron 4 mg disintegrating 4 mg PO Q6H PRN nausea and 05/19/24 tablet vomiting #14 tabs aripiprazole 5 mg tablet (Abilify) 5 mg PO DAILY #30 tabs 06/18/24 celecoxib 100 mg capsule (Celebrex) 100 mg PO BID #60 caps 06/18/24 ergocalciferol (vitamin D2) 1,250 1,250 mcg PO .every 12 weeks #1 cap 06/18/24 mcg (50,000 unit) capsule fluoxetine 10 mg capsule 10 mg PO DAILY #30 caps 06/18/24 prednisone 10 mg tablet 10 mg PO DAILY #14 tabs 07/25/24 Allergies Allergy/AdvReac Type Severity Reaction Status Date / Time mushrooms Allergy anaphylaxis Uncoded 06/18/24 11:12 Review of Systems Const: Denies: fever(s), chills, body aches, fatigue or malaise Eyes: Denies: change in vision or blurry vision Card: Denies: chest pain, palpitations, irregular heart rhythm, lightheadedness, syncope or dyspnea on exertion Resp: Denies: dyspnea, productive cough or pain on inspiration GI: Denies: abdominal pain, nausea, vomiting, heartburn or diarrhea : Denies: dysuria Musc: Reports: neck pain, back pain and joint pain; Denies: extremity pain, extremity swelling, joint swelling, joint redness, joint warmth or muscle cramps Skin/Breast: Denies: rash Neuro: Denies: numbness in extremities, weakness in extremities, sensory changes or difficulty walking PFSH ED PFSH: Medical History Seronegative rheumatoid arthritis of both hands Fibromyalgia Immunization counseling High risk medication use Inflammatory back pain Inflammatory arthritis Medical marijuana use Fibromyalgia muscle pain History of menorrhagia Treated by endometrial ablation in 06/2019 Surgical History Status post endometrial ablation (07/15/19) NovaSure endometrial ablation. Diagnosis: Menorrhagia, Dysmenorrhea, Endometrial polyp. Performed by Dr. Alfonso Peace at [facility] and [place], [place]. History of lumpectomy (~2007) History of bilateral tubal ligation (~2005) Family History Unknown Hypertension family members in general Stroke family members in general Diabetes family members in general Mother Thyroid disease Other Cancer Lupus (systemic lupus erythematosus) Osteoporosis Rheumatoid arthritis Denies family history of CAD (coronary artery disease) Heart disease Migraines Hyperlipidemia Chronic kidney disease (CKD) Social History Smoking and tobacco/nicotine status: current every day tobacco/nicotine user cigarettes [ Other cigarette details: quit in 2014 then started back in [place]] Second hand smoke exposure: No Alcohol intake: current Alcohol intake frequency: few times a month Substance/Drug Use: unknown Adopted: No Caregiver/support person: No Lives independently: Yes Household members: spouse Marital status: Highest education level completed: Don't Know service: No Do you think of yourself as: Straight/Heterosexual Current gender identity: Female Physical Exam Const: COMMON NORMALS: no acute distress, average body habitus, patient oriented x3, no limitations, healthy appearing, alert and well nourished GENERAL APPEARANCE: cooperative ORIENTATION/CONSCIOUSNESS: Yes awake, Yes oriented to person, Yes oriented to place and Yes oriented to time HENMT: HEAD & SCALP: normal to inspection Neck/C-Spine: COMMON NORMALS: full ROM, no lymphadenopathy, supple and no meningeal signs CERVICAL SPINE: Yes pain with cervical ROM and Yes Paracervical muscle tenderness Resp: COMMON NORMALS: normal respiratory effort and clear to auscultation bilaterally AUSCULTATION: clear to auscultation bilaterally Cardio: COMMON NORMALS: regular rate and regular rhythm RATE: regular rate RHYTHM: regular rhythm : COMMON NORMALS: Yes no CVA tenderness BLADDER/KIDNEY EXAM: Yes no CVA tenderness Back/Pelvis: COMMON NORMALS: no CVA tenderness and thoracic and lumbar spine normal to inspection THORACIC SPINE/UPPER BACK: Yes thoracic ROM normal and Yes paraspinal muscle tenderness LUMBAR SPINE/LOWER BACK: Yes lumbar ROM normal and Yes paraspinal muscle tenderness Extremity: COMMON NORMALS: normal to inspection GENERAL: Yes normal exam except as noted OTHER: hand joint pain Neuro: COMMON NORMALS: patient oriented x3, moves all extremities, no focal motor deficits, no sensory deficits noted and gait normal SENSORIUM/ORIENTATION: Yes alert, Yes oriented to person, Yes oriented to place and Yes oriented to time MENINGEAL SIGNS: Yes no meningeal signs Skin: COMMON NORMALS: no rashes or lesions noted GENERAL SKIN EXAM: no rashes or lesions noted Course Vital Signs: Vital signs: Vital Signs Temperature 97.9 F 07/25/24 09:21 Pulse Rate 86 07/25/24 09:51 Respiratory Rate 18 07/25/24 09:21 Blood Pressure 140/83 07/25/24 09:51 Pulse Oximetry 96 07/25/24 09:51 [facility] - General Adult Medical Decision Making Patient's symptoms most likely consistent with RA flare. She had been taken off of her RA meds due to elevated LFTs. Her most recent blood work completed today showing normal LFTs. I would like her to discuss with primary care and her welding pantograph machine operator about restarting these medications if indicated. She did states she had very good control of her RA symptoms while on them. Will place her on a steroid taper today to help with her RA flare. Medical Records I reviewed the patient's medical records. Lab Data I reviewed the patient's lab results. (had labs performed earlier this AM; reviewed) No radiology studies performed this visit Discharge Plan Discharge Patient Disposition: Home Clinical Impression: Rheumatoid arthritis flare Condition: Stable Prescriptions: New prednisone 10 mg tablet 10 mg PO DAILY Qty: 14 0RF Rx Instructions: Take 4 tabs on day 1-2, 3 tabs on day 3, 2 tabs on day 4, 1 tab on day 5 Held prednisone 5 mg tablet 2 mg PO DAILY Hold Instructions: while taking steroid taper No Action leflunomide 20 mg tablet 20 mg PO DAILY Qty: 90 1RF omeprazole 20 mg capsule,delayed release(DR/EC) 20 mg PO DAILY 30 Days Qty: 30 3RF aripiprazole [Abilify] 5 mg tablet 5 mg PO DAILY Qty: 30 2RF celecoxib [Celebrex] 100 mg capsule 100 mg PO BID Qty: 60 2RF ergocalciferol (vitamin D2) 1,250 mcg (50,000 unit) capsule 1,250 mcg PO .every 12 weeks Qty: 1 1RF fluoxetine 10 mg capsule 10 mg PO DAILY Qty: 30 2RF prednisone 20 mg tablet See Rx Instructions PO .COMPLEX PRN (Reason: joint pain flare) Qty: 30 1RF Rx Instructions: take 2 tab daily for 7 days as needed for arthritis flare PO PRN; sulfasalazine 500 mg tablet 2 g PO BID ondansetron 4 mg tablet,disintegrating 4 mg PO Q6H PRN (Reason: nausea and vomiting) Qty: 14 0RF Discharge Orders: Discharge ED (Routine); Ordered 07/25/24 Ordered By: Becky Mendoza Referrals: Lauren Cee FNP-C [Primary Care Provider] - Activity Restrictions/Additional Instructions: As we discussed, please follow-up with primary care in between today's visit and your scheduled visit with rheumatology in August. Coding Level of Care Code ED Towerman for Wade Chu
[2024-07-25] MEDS: methylPREDNISolone sod succ 125 mg/2 mL INJ 80 MG IM (09:49)
[2024-07-25 09:51] VITALS: BP 140/83; PULSE 86; O2SAT 96
== END 2024-07-25 09:52 | disposition home or self-care (01) ==
PROVIDERS: Emergency Provider Physician Assistant; PCP Nurse Practitioner
DX: M06.9 Rheumatoid arthritis, unspecified (principal); F17.210 Nicotine dependence, cigarettes, uncomplicated
CPT/HCPCS: 96372; 99284; J2919

== ENCOUNTER → 2024-09-15 10:51 | Outpatient (BNVA) | payer BC, MEDICAID, SELFPAY | PROVIDERS: PCP Nurse Practitioner; Visit Provider Nurse Practitioner | DX: R68.89 Other general symptoms and signs (principal); F32.1 Major depressive disorder, single episode, moderate; M19.90 Unspecified osteoarthritis, unspecified site; E55.9 Vitamin D deficiency, unspecified; F32.9 Major depressive disorder, single episode, unspecified; J10.1 Influenza due to other identified influenza virus with other respiratory manifestations | CPT/HCPCS: 87400 ==

== ENCOUNTER → 2024-12-10 10:48 | Outpatient (BNVA) | payer BC, MEDICAID, SELFPAY | PROVIDERS: PCP Nurse Practitioner; Visit Provider Internal Medicine Rheumatology | DX: Z79.899 Other long term (current) drug therapy (principal) | CPT/HCPCS: 36415; 80076; 82565; 85025; 85651; 86140; 86480 ==

== ENCOUNTER → 2025-04-08 12:11 | Outpatient (BNVA) | payer BC, MEDICAID, SELFPAY | PROVIDERS: PCP Nurse Practitioner; Visit Provider Nurse Practitioner | DX: Z13.6 Encounter for screening for cardiovascular disorders (principal); E55.9 Vitamin D deficiency, unspecified | CPT/HCPCS: 80053; 80061; 82306 ==

== ENCOUNTER 2025-06-09 14:58 | Outpatient (CLI) | payer BC, MEDICAID, SELFPAY ==
--- NOTE | 2025-06-09 10:00 | MM_ITS ---
WS: [id number] BILATERAL 3D TOMOSYNTHESIS DIGITAL SCREENING MAMMOGRAPHY WITH CAD CLINICAL INFORMATION: Z12.31 - Encounter for screening mammogram for malignant ... HISTORY: Screening mammogram. No current complaints. COMPARISON: 2023 TECHNIQUE: Bilateral CC and MLO views. FINDINGS: The breasts are composed of heterogeneous fibroglandular density tissue, which can limit the detection of small underlying mass lesions. No suspicious mass, asymmetry, calcifications, or architectural distortion. No evidence of malignancy. Stable punctate and clustered calcifications RIGHT breast MM/MM scr tomosynthesis [id number] IMPRESSION: DENSITY: The breasts are heterogeneously dense, which may obscure small masses. BI-RADS: 2 - Benign FOLLOW UP: 1 Year Follow-up Recommend return to annual screening mammography.
== END 2025-06-09 14:59 | disposition home or self-care (01) ==
PROVIDERS: PCP Nurse Practitioner; Visit Provider Nurse Practitioner
DX: Z12.31 Encounter for screening mammogram for malignant neoplasm of breast (principal); R92.333 Mammographic heterogeneous density, bilateral breasts; R92.323 Mammographic fibroglandular density, bilateral breasts; R92.1 Mammographic calcification found on diagnostic imaging of breast
CPT/HCPCS: 77063; 77067